=== PATIENT | female | born 1965 | race Caucasian/White ===

== ENCOUNTER 2022-01-03 09:06 | Emergency (ER) | payer MEDICARE, SELFPAY ==
--- NOTE | ~2022-01-03 | CT_ITS ---
EXAMINATION: CT abdomen pelvis w con DATE: 01/03/2022 11:42 INDICATION: Left lower quadrant abdominal pain. Nausea and vomiting. TECHNIQUE: Computed tomography (CT) of the abdomen and pelvis was performed with 100 CC Omnipaque 350 intravenous contrast. Automated exposure control and iterative reconstruction technique were employe d. Exam dose: 1015.58 mGy-cm total exam DLP. COMPARISON: 09/28/2005 2 view chest FINDINGS: There is a 1.3 cm soft tissue mass in the lateral aspect of the left lower lobe. No such de nsity is noted on 09/28/2005 chest radiographic examination. Lung cancer must be considered. PET/CT chu ging may be helpful for further evaluation. The lesion would be amenable to percutaneous CT-guided ne edle biopsy. The lung bases are clear of infiltrate or consolidation. Normal heart size. No pericardial or pleural effusion. Status post cholecystectomy. This likely accounts for mild bile duct dilatation. No hepatic, splenic, pancreatic, adrenal or suspicious renal space-occupying mass lesion is detected. Occasional small re nal cyst is noted. No urinary tract calculus or hydroureteronephrosis. The urinary bladder is relativ kam evacuated, unremarkable. Uterus and adnexal areas are unremarkable. Normal caliber of the abdominal aorta. No intraperitoneal or retroperitoneal or pelvic mass lesion or adenopathy or ascites. No evidence of appendicitis. No bowel obstruction or intraperitoneal free air. Degenerative spurring of the lower thoracic spine. Multilevel degenerative disc disease of lumbar spi ne, particularly severe at L2-3 and L3-4. Prominent degenerative change at the lumbar apophyseal join ts with associated grade 1 anterolisthesis at L4-5. No suspicious osteolytic or osteoblastic lesions. IMPRESSION: 1.3 cm left lower lobe lung mass, of concern for lung cancer. Further evaluation is recom mended. Status post cholecystectomy Occasional small renal cysts Reviewed, dictated and finalized at [facility]. Reviewed, dictated and finalized at [facility]. IMPRESSION: 1.3 cm left lower lobe lung mass, of concern for lung cancer. Furth er evaluation is recommended. Status post cholecystectomy Occasional small renal cysts
[2022-01-03 09:21] VITALS: BP 117/76; PULSE 70; RESP 18; TEMP 36.4; O2SAT 100
[2022-01-03 09:58] LABS: Basophils Percent Auto 0.9 % (0.2-1.2); Eosinophils Absolute Auto 0.1 K/mm3 (0-0.3); Hematocrit 39.5 % (37.0-47.0); Hemoglobin 13.3 g/dL (12.0-15.0); Immature Granulocyte Absolute 0.01 K/mm3 (0.00-0.031); Immature Granulocyte Percent A 0.2 % (0-0.5); Lymphocytes Absolute Auto 1.39 K/mm3 (0.9-3.2); Lymphocytes Percent Auto 31.9 % (18.3-44.2); Mean Corpuscular HGB Conc 33.7 g/dl (32-36); Mean Corpuscular Hemoglobin 30.9 pg (26-34); Mean Corpuscular Volume 91.9 fl (80-100); Monocytes Absolute Auto 0.4 K/mm3 (0.1-0.6); Monocytes Percent Auto 8.5 % (2.6-8.5); Neutrophils Absolute Auto 2.4 K/mm3 (1.3-6.7); Neutrophils Percent Auto 55.5 % (45.5-73.1); Platelet Count Result 231 k/mm3 (150-375); Red Cell Distribution Width 12.4 % (11.5-14.5); White Blood Count 4.4 K/mm3 (4.5-10.0)
[2022-01-03 10:11] LABS: Alanine Aminotransferase 20 U/L (6-35); Albumin Level 4.4 g/dL (3.5-5.1); Alkaline Phosphatase 59 U/L (38-126); Anion Gap 8 mmol/L (8-16); Aspartate Amino Transferase 28 U/L (14-36); Bilirubin,Total 0.6 mg/dL (0.2-1.3); Blood Urea Nitrogen 16 mg/dL (7-17); Calcium 8.8 mg/dL (8.4-10.2); Carbon Dioxide 27 mmol/L (22-30); Chloride 104 mmol/L (98-107); Estimated CRCL calculation 79 ml/min; Estimated Glomerular Filt Rate > 60; Glucose 104 mg/dL (65-110); Lipase 54 U/L (23-300); Sodium 139 mmol/L (137-145)
[2022-01-03 10:51] VITALS: BP 124/66; O2SAT 99
[2022-01-03] MEDS: MORPHINE SULFATE (*CRX) 4 MG/ML INJ IV PUSH ×2 (10:59→13:41)
[2022-01-03] MEDS: ONDANSETRON INJ 4 MG/2 ML VIAL IV PUSH (10:59)
[2022-01-03] MEDS: LACTATED RINGERS 1,000 ML 999 ML IV CONT (11:00)
[2022-01-03 11:13] LABS: Appearance Urine Clear (Clear); Bilirubin Urine Negative (Negative); Color Urine Yellow (Yellow); Glucose Urine UA Negative (Negative); Ketones Urine Negative (Negative); Leukocyte Esterase Ur Negative LEU/UL (Negative); Nitrate Urine Negative (Negative); Protein Urine Negative (Negative); Specific Grav Ur 1.025 (1.001-1.035); Urobilinogen Urine 0.2 mg/dL (<2.0); pH Urine 7.5 (5.0-9.0)
[2022-01-03 11:38] LABS: Mucus Urine Rare /lpf; Squamous Epithelial Cell Urine Rare /hpf (Few); WBC Urine 0-3 /hpf
[2022-01-03 11:42] LABS: Add Urine Microscopic? YES; Blood Urine Trace-Intact (Negative)
[2022-01-03 11:51] LABS: SARS-CoV-2 RNA PCR Negative
[2022-01-03 12:23] VITALS: BP 117/72; PULSE 78; RESP 18; O2SAT 99
--- NOTE | 2022-01-03 14:53 | ED.ABDPAIN ---
HPI - Abdominal Pain General Chief Complaint: Abdominal Pain Stated Complaint: abdominal pain, vomiting Time Seen by Provider: 01/03/22 10:19 History of Present Illness HPI narrative: 56-year-old female presenting with nausea, vomiting, left lower quadrant pain x2d, worse with walking. No dysuria. NO f/c, never had similar sx in the past. Related Data Allergies Allergy/AdvReac Type Severity Reaction Status Date / Time codeine Allergy Unknown Verified 01/21/11 12:02 Review of Systems Review of Systems: CONST: No fever. HEENT: No sore throat C/V: No chest pain RESP: No cough GI: Reports abdominal pain, nausea : No dysuria. M/S: No joint pain. SKIN: No rash. NEURO: [No headache or focal numbness or weakness] PSYCH: [No depression] [facility] Family History Family History Other Cerebrovascular accident Diabetes mellitus Family history of arthritis Hypertension Social History Social History Smoking status: Former smoker Alcohol intake: never Exam Narrative: EXAMINATION OF ORGAN SYSTEMS/BODY AREAS: Constitutional: Vital signs per nursing GENERAL:[No acute distress, non-toxic appearing.] HEAD: Normal with no signs of head trauma. EYES: EOMI, conjunctiva normal ENT: Hearing grossly intact LUNGS: Nonlabored breathing. HEART: [Regular rate and rhythm] ABD: [Soft], [mild tenderness left lower quadrant to palpation], no CVA tenderness EXT: Normal range of motion SKIN: [No rashes or lesions.] NEURO: [Alert and oriented x 3. No gross focal sensory or strength deficits.] PSYCH: Normal affect Course Vital Signs Vital signs: Vital Signs Temperature 97.6 F 01/03/22 09:21 Pulse Rate 70 01/03/22 09:21 Respiratory Rate 18 01/03/22 09:21 Blood Pressure 117/76 01/03/22 09:21 Pulse Oximetry 100 01/03/22 09:21 Oxygen Delivery Room Air 01/03/22 09:21 Temperature 97.6 F 01/03/22 09:21 Pulse Rate 62 01/03/22 15:27 Respiratory Rate 20 01/03/22 15:27 Blood Pressure 133/58 L 01/03/22 15:27 Pulse Oximetry 99 01/03/22 15:27 Oxygen Delivery Room Air 01/03/22 09:21 MDM - Abdominal Pain MDM Narrative Medical decision making narrative: Electronic medical record was reviewed. Patient presented to the ED with complaint of [abdominal pain and vomiting]. Vitals [were within acceptable limits]. Physical exam revealed [tenderness to palpation in left lower quadrant abdomen]. Based on the patient's history and physical exam, my differential includes but is not limited to [diverticulitis, UTI, kidney stone, gastroenteritis appendicitis]. [IV access was established by nursing staff. Patient was given zofran, morphine]. CBC, BMP, lipase, LFTs, bilirubin and alk phos were obtained. Labs were pertinent for blood in UA. [Decision was made to obtain a CT-abdomen to evaluate for acute abdominal process. CT-abdomen is unremarkable for acute intra-abdominal process, no signs of hydronephrosis, appendicitis.] There is a pulmonary nodule which I have discussed with the patient and her at bedside regarding need to follow-up on this for possible cancer. On reevaluation, the patient states that they are feeling much better. There were no witnessed episodes of vomiting in the emergency department. They are not complaining of any new abdominal pain. Repeat examination did not show any significant guarding or rebound. No new tenderness. I did offer the patient admission for pain control however she would like to go home at this time. The patient was given strict return precautions, if they are to develop any worsening abdominal pain, vomiting, or blood in the vomit they are to return to the emergency department immediately. Patient verbally acknowledges understanding these directions. [The patient was informed of the above diagnostic test findings.] They will be discharged home [with prescriptions]. They were ad
[2022-01-03 15:27] VITALS: BP 133/58; PULSE 62; RESP 20; O2SAT 99
== END 2022-01-03 15:28 | disposition home or self-care (01) ==
PROVIDERS: Physician Assistant; Emergency Provider Emergency Medicine
DX: R10.32 Left lower quadrant pain (principal); Z20.822 Contact with and (suspected) exposure to COVID-19; Z87.891 Personal history of nicotine dependence
CPT/HCPCS: 36415; 74177; 80053; 81001; 83690; 85025; 96361; 96374; 96375; 96376; 99284; C9803; J2270; J2405; J7120; Q9967; U0003; U0005

== ENCOUNTER 2022-08-31 10:02 | Day surgery (SDC) | payer MEDICARE, SELFPAY ==
[2022-08-06 12:00] VITALS: BMI 31.3
[2022-08-19 10:08] VITALS: BMI 31.1
--- NOTE | 2022-08-31 10:43 | WPDANESEPPF ---
Anes - Initial Pre Proc Eval Procedure: Operation Date: 08/31/22 12:30 Proposed Procedures p Diagnostic Colonoscopy - Eliazar Jones MD Date/Time: 08/31/22 10:43 Surgeon: Eliazar Jones MD Pre Op Diagnosis: Unspecified Abd.Pain, Other Fecal Abnormalities Patient Data Age: 57 Gender: F Height: 1.7 m Weight: 90 kg Allergies Allergy/AdvReac Type Severity Reaction Status Date / Time codeine Allergy Unknown Vomiting Verified 08/31/22 11:27 Home Medications Medication Instructions Recorded Confirmed Type bupropion HCl 150 mg 24 hr tablet, 150 mg PO TID 01/14/22 08/31/22 History extended release (Wellbutrin XL) multivitamin 1 tablet PO DAILY 01/14/22 08/31/22 History sertraline 100 mg tablet (Zoloft) 100 mg PO TID 01/14/22 08/31/22 History sodium,potassium,mag sulfates 17.5 See Rx Instructions PO .COMPLEX 08/06/22 08/31/22 Rx gram-3.13 gram-1.6 gram oral soln #354 mL (Suprep Bowel Prep Kit) Patient hx anesthesia problems: none Family hx anesthesia problems: none Results Review: All pre-operative results and documents have been reviewed as part of the pre-operative evaluation. [facility] Past Medical History Medical History (Updated 08/31/22 @ 12:10 by Eliazar Jones MD) Allergies Anxiety Obesity Family History Family History Mother Depression Lymphoma Father Cancer Diabetes mellitus Depression Heart disease MDS (myelodysplastic syndrome) Grandparent Diabetes mellitus Hypertension Depression Heart disease Cerebrovascular accident Colorectal cancer Skin cancer Sibling Depression Other Family history of arthritis Social History Social History (Updated 08/05/22 @ 13:48 by Suzy Rodríguez [facility]) Smoking status: Former smoker Tobacco type: e-cigarettes/vaping Alcohol intake: never Substance use: never Substance use type: does not use Lack of Transportation: No Lack of Food: Never True Current Housing: I Have Housing Concerned About Future Housing: No Difficulty Paying Gas/Electric Bills: No Difficulty Paying for Meds: No Currently Unemployed: No Education: Associate Degree Difficulty w/ Childcare or Family Care: No Living arrangements: with family Spiritual care concerns: No Anes - Eval Final PreProcedure Day of Procedure 08/31/22 10:43 Patient weight: obese Heart: regular rate and rhythm Lungs: clear to auscultation and normal air movement Airway: Mallampati scale class II Neurological: alert and oriented Last oral intake: >/= 8 hours ASA classification: II Emergent: no Anesthetic plan: proceed Anesthesia type and monitoring: general GIVS Results Review: All pre-operative results and documents have been reviewed as part of the pre-operative evaluation. Informed Consent: The patient's anesthetic plan and its attendant risks and benefits were discussed with the patient/family/POA. Questions were solicited and answers provided to the satisfaction of the patient/family/POA.
[2022-08-31 11:25] VITALS: BP 112/84; PULSE 77; RESP 20; TEMP 37.2; O2SAT 100
[2022-08-31] MEDS: LACTATED RINGERS 1,000 ML 150 ML IV CONT (11:47)
--- NOTE | 2022-08-31 12:07 | PM.HPGS ---
History of Present Illness History of Present Illness Consent: Risks, benefits, and alternatives have been discussed and questions answered. Patient agrees to proceed with procedure. Chief complaint: Unspecified Abd.Pain, Other Fecal Abnormalities Narrative: Ivette Moralez is a 57 year old female Presents for colonoscopy. Patient reports for many years has had a vague right lower quadrant pain. She describes as a sharp crampy pain deep in the right pelvis. Patient apparently had a viral gastroenteritis recently. Prior to this she was constipated. Now hour bowel habits are more regular. Patient denies a fever. She has had no bleeding. Family history is noncontributory. It has been more than 10 years since previous screening colonoscopy in screening colonoscopy is now advised. Patient presents today for colonoscopy. Patient has distant past medical history is significant for gastric bypass surgery. Patient also scheduled for gynecological examination of this abdominal pain. Review of Systems Review of Systems: Review of systems noncontributory. [facility] Past Medical History Medical History (Updated 08/31/22 @ 12:10 by Eliazar Jones MD) Allergies Anxiety Obesity Family History Family History Mother Depression Lymphoma Father Cancer Diabetes mellitus Depression Heart disease MDS (myelodysplastic syndrome) Grandparent Diabetes mellitus Hypertension Depression Heart disease Cerebrovascular accident Colorectal cancer Skin cancer Sibling Depression Other Family history of arthritis Social History Social History (Updated 08/05/22 @ 13:48 by Suzy Rodríguez [facility]) Smoking status: Former smoker Tobacco type: e-cigarettes/vaping Alcohol intake: never Substance use: never Substance use type: does not use Lack of Transportation: No Lack of Food: Never True Current Housing: I Have Housing Concerned About Future Housing: No Difficulty Paying Gas/Electric Bills: No Difficulty Paying for Meds: No Currently Unemployed: No Education: Associate Degree Difficulty w/ Childcare or Family Care: No Living arrangements: with family Spiritual care concerns: No Meds Home Medications and Allergies Home Medications Medication Instructions Recorded Confirmed Type bupropion HCl 150 mg 24 hr tablet, 150 mg PO TID 01/14/22 08/31/22 History extended release (Wellbutrin XL) multivitamin 1 tablet PO DAILY 01/14/22 08/31/22 History sertraline 100 mg tablet (Zoloft) 100 mg PO TID 01/14/22 08/31/22 History sodium,potassium,mag sulfates 17.5 See Rx Instructions PO .COMPLEX 08/06/22 08/31/22 Rx gram-3.13 gram-1.6 gram oral soln #354 mL (Suprep Bowel Prep Kit) Allergies Allergy/AdvReac Type Severity Reaction Status Date / Time codeine Allergy Unknown Vomiting Verified 08/31/22 11:27 Vital Signs Vital Signs - 24 hr 08/31/22 11:25 Temperature 99.0 F Pulse Rate 77 Respiratory Rate 20 Blood Pressure 112/84 Pulse Oximetry 100 Oxygen Delivery Room Air Exam Narrative: Physical exam reveals patient to be alert. Vital signs stable. HEENT exam is unremarkable. Patient is anicteric. Lungs are clear to auscultation and percussion. Heart is without murmur or extra sounds. Abdomen bowel sounds are present soft nontender with no organomegaly. Digital rectal exam normal. Assessment and Plan Assessment and plan (1) Abdominal pain: Code(s): R10.9 - Unspecified abdominal pain Status: Acute Assessment and Plan: Patient has rather vague right lower quadrant abdominal pain that has been present for many years. Described as sharp and crampy. Plan is for colonoscopy to evaluate this also for screening purposes. (2) Encounter for screening colonoscopy: Code(s): Z12.11 - Encounter for screening for malignant neoplasm of colon Status: Acute Assessment and Samuel
[2022-08-31 13:14] VITALS: BP 108/65; PULSE 70; RESP 14; O2SAT 98
[2022-08-31 13:24] VITALS: BP 95/72; PULSE 60; RESP 18; O2SAT 100
[2022-08-31 13:34] VITALS: BP 109/69; PULSE 70; RESP 18; O2SAT 100
--- NOTE | 2022-08-31 15:00 | WPDANESPN ---
Anes - Prog Note Post-Op Date/Time: 08/31/22 15:00 Cardiovascular status: normal Respiratory status: normal Airway patency: baseline Mental status: baseline Post-Op hydration status: normal Vital Signs: Last Vital Signs Temp 37.2 C 08/31/22 11:25 Pulse 70 08/31/22 13:34 Resp 18 08/31/22 13:34 BP 109/69 08/31/22 13:34 Pulse Ox 100 08/31/22 13:34 O2 Del Method Room Air 08/31/22 13:34 Pain Score (VAS): 0 I/O: Intake & Output 08/30/22 08/31/22 08/31/22 23:59 07:59 15:59 Intake Total 550 Balance 550 Post-procedural complaints: none Patient Feedback: Patient satisfied with anesthetic care.
== END 2022-08-31 13:58 | disposition home or self-care (01) ==
PROVIDERS: PCP Family Medicine; Visit Provider Internal Medicine Gastroenterology
PROC: 0DJD8ZZ Inspection of Lower Intestinal Tract, Via Natural or Artificial Opening Endoscopic (ICD-10-PCS; CPT 45378; principal; 2022-08-31 12:30)
DX: Z12.11 Encounter for screening for malignant neoplasm of colon (principal)
CPT/HCPCS: 45378

== ENCOUNTER 2022-10-29 08:36 | Outpatient (CLI) | payer MEDICARE, SELFPAY ==
--- NOTE | 2022-11-20 10:40 | WPDSLEEPSTUD ---
Sleep Study Date of Study: 10/29/22 Ordering Provider: Angie Roberts DO Interpreting Physician: Scarlett Chapa MD Sleep Study Type: Split Polysomnogram Height: 1.73 m Weight: 92.986 kg Body Mass Index: 31.1 Neck Circumference (inches): 14 Candor: 12 Reason for Sleep Study Unrefreshing sleep, daytime hypersomnia, and loud snoring Sleep History Patient is a 57-year-old female with history of allergies and anxiety who presented for a split night sleep study for evaluation of daytime hypersomnia, unrefreshing sleep, and loud snoring. She never awakens from sleep short of breath. She occasionally awakens at night with heartburn, belching or cough. She frequently snores and snores loudly enough that others complain. She occasionally has trouble sleeping when she has a cold. She occasionally suddenly wakes up gasping for breath during the night. She never has breathing problems at night. She occasionally sweats excessively at night. She rarely notices her heart pounding or beating irregularly during the night. She occasionally falls asleep during the day. She rarely falls asleep involuntarily and never falls asleep while driving. She never experiences loss of muscle tone with strong emotion. She never feels paralyzed on waking or falling asleep. She rarely experiences vivid dreams upon waking or falling asleep. She occasionally feels afraid of going to sleep. She occasionally has nightmares. She occasionally recalls her dreams. She frequently has thoughts racing through her mind. She frequently feels sad or depressed. She frequently feels anxiety or worry about things. She constantly notices parts of her body jerk. She occasionally kicks during the night. She never feels crawling or aching feelings in her legs and does not feel leg pain at night. She frequently grinds her teeth during sleep and frequently wakes up with morning jaw pain. She frequently feels bothered by pain during the day and is occasionally awakened by pain during the night. She frequently wakes up feeling stiff in the morning. She occasionally wakes up feeling sore and achy in the morning and frequently wakes pain in her neck, spine, or joints. Normal bedtime is around 9pm on the weekdays and 9 or 10pm on the weekends, taking 1 hour to fall asleep. She typically gets about 7 hours of sleep per night. Her wake up time is between 5:30am to 7am on the weekdays and same on the weekends. She typically wakes up around twice per night, awake 5 to 10 minutes or more and she will go to the bathroom and take a drink. Habits: Former tobacco smoker. Drinks about 5 caffeinated beverages per day. No alcohol or recreational substances. [facility] Past Medical History Medical History Allergies Anxiety Obesity Family History Family History Mother Depression Lymphoma Father Cancer Diabetes mellitus Depression Heart disease MDS (myelodysplastic syndrome) Grandparent Diabetes mellitus Hypertension Depression Heart disease Cerebrovascular accident Colorectal cancer Skin cancer Sibling Depression Other Family history of arthritis Social History Social History Smoking status: Former smoker Tobacco type: e-cigarettes/vaping Alcohol intake: never Substance use: never Substance use type: does not use Lack of Transportation: No Lack of Food: Never True Current Housing: I Have Housing Concerned About Future Housing: No Difficulty Paying Gas/Electric Bills: No Difficulty Paying for Meds: No Currently Unemployed: No Education: Associate Degree Difficulty w/ Childcare or Family Care: No Living arrangements: with family Spiritual care concerns: No Medications Home Medications Medication Instructions Recorded Confirmed Type bupropion HCl 150 mg 24 hr tablet, 150 mg PO
[2022-11-20 10:53] VITALS: BMI 31.1
== END 2022-10-30 08:11 | disposition home or self-care (01) ==
LOC: ANHCSM 08:37
PROVIDERS: PCP Family Medicine; Visit Provider Family Medicine
DX: G47.10 Hypersomnia, unspecified (principal); G47.33 Obstructive sleep apnea (adult) (pediatric)
CPT/HCPCS: 95811

== ENCOUNTER 2022-11-12 10:27 | Outpatient (CLI) | payer MEDICARE, SELFPAY ==
--- NOTE | ~2022-11-12 | XR_ITS ---
. XR shoulder RT min 2V 11/12/2022 10:40 Indication: Right shoulder pain. No acute injury. Procedure: 4 views right shoulder Comparison: Comparison to multiple prior studies sequentially, with oldest reviewed study dated 10/09. Findings: There is mild-moderate polyarticular osteoarthritis of the right shoulder. No fracture, sub luxation or dislocation. No significant soft tissue abnormality. No foreign bodies. Impression: 1: Mild-moderate polyarticular osteoarthritis of the right shoulder. Reviewed, dictated and finalized at [facility]. Impression: 1: Mild-moderate polyarticular osteoarthritis of the right shoulder.
--- NOTE | ~2022-11-12 | XR_ITS ---
XR shoulder LT min 2V 11/12/2022 10:40 Indication: Left shoulder pain Procedure: 4 views left shoulder Comparison: 10/21/2012 Findings: There is mild osteoarthritis of the glenohumeral joint. No fracture or traumatic malalignme nt. No significant soft tissue abnormality. No foreign bodies. Impression: 1: Mild left glenohumeral joint osteoarthritis. Reviewed, dictated and finalized at [facility]. Impression: 1: Mild left glenohumeral joint osteoarthritis.
== END 2022-11-12 10:28 ==
PROVIDERS: PCP Family Medicine; Visit Provider Family Medicine
DX: M19.012 Primary osteoarthritis, left shoulder (principal); M19.011 Primary osteoarthritis, right shoulder
CPT/HCPCS: 73030

== ENCOUNTER 2023-07-08 10:18 | Outpatient (CLI) | payer MEDICARE, SELFPAY ==
--- NOTE | ~2023-07-08 | US_ITS ---
EXAMINATION: US soft tissue groin RT DATE: 07/08/2023 10:36 INDICATION: Right groin pain. TECHNIQUE: Multiple grayscale and Doppler ultrasound images of the right groin were obtained. COMPARISON: CT abdomen and pelvis 01/03/2022 FINDINGS: There is no abnormal mass, lymphadenopathy, or hernia in the patient's area of concern in r ight groin. IMPRESSION: 1. No abnormality in right groin. Reviewed, dictated and finalized at location [facility]. FING DIRECTOR
== END 2023-07-08 10:19 ==
LOC: GOSHIMG 10:19
PROVIDERS: PCP Family Medicine; Visit Provider Family Medicine
DX: R22.2 Localized swelling, mass and lump, trunk (principal)
CPT/HCPCS: 76882

== ENCOUNTER 2023-07-20 08:18 | Outpatient (CLI) | payer MEDICARE, SELFPAY ==
--- NOTE | ~2023-07-20 | CT_ITS ---
CT of the Abdomen and Pelvis: Indication: Right inguinal hernia Technique: 2.5 mm axial scans were obtained through the abdomen and pelvis following intravenous adm inistration of 100 cc of Omnipaque 350. Dose reduction technique was used on this scan by utilizing a utomated exposure control and iterative reconstruction technique. The dose-length product (DLP) was 1 140.21 mGy-cm. COMPARISON: 01/03/2022 Findings: Scans through the lung bases demonstrates stable 1.6 cm left basilar pulmonary nodule. The liver, spleen, pancreas, adrenals and kidneys are within normal limits. Cholecystectomy clips are present. There are atherosclerotic calcifications of the aorta. No lymphadenopathy. No bowel obstruction or bowel wall thickening. There is no evidence to suggest acute appendicitis. Images through the pelvis were performed. Urinary bladder unremarkable. No pelvic mass seen. No ascit es. Degenerative spondylosis of lumbar spine noted. Impression: No hernia identified. Stable 1.6 cm left basilar pulmonary nodule. Reviewed, dictated and finalized at [facility]. [employer] Impression: No hernia identified. Stable 1.6 cm left basilar pulmonary nodule.
== END 2023-07-20 08:19 ==
LOC: GOSHIMG 08:19
PROVIDERS: PCP Family Medicine; Visit Provider Family Medicine
DX: R10.31 Right lower quadrant pain (principal)
CPT/HCPCS: 74177; Q9967

== ENCOUNTER 2024-03-20 11:07 | Emergency (ER) | payer MEDICARE, SELFPAY ==
--- NOTE | ~2024-03-20 | XR_ITS ---
Clinical Indication: Cough PA and lateral views of the chest: Comparison: 09/28/2005 Findings: 2 cm nodule present the left lung base laterally. Right lung clear. Cardiomediastinal silho uette is within normal limits. Bones and soft tissues are unremarkable. Impression: 2 cm lateral left lung base nodule. This correlates with the nodule seen in this location on prior ab dominal pelvic CT dated 07/20/2023. Reviewed, dictated and finalized at location M. Impression: 2 cm lateral left lung base nodule. This correlates with the nodule seen in thi s location on prior abdominal pelvic CT dated 07/20/2023.
[2024-03-20 11:17] VITALS: BP 109/68; PULSE 72; RESP 16; TEMP 36.4; O2SAT 99
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
== END 2024-03-20 12:30 | disposition home or self-care (01) ==
PROVIDERS: Emergency Provider Nurse Practitioner Family; PCP Family Medicine
DX: J40 Bronchitis, not specified as acute or chronic (principal); F41.9 Anxiety disorder, unspecified; E66.9 Obesity, unspecified; Z68.31 Body mass index [BMI] 31.0-31.9, adult; Z87.891 Personal history of nicotine dependence
CPT/HCPCS: 71046; 99213; G0463

== ENCOUNTER 2024-06-20 12:27 | Emergency (ER) | payer MEDICARE, SELFPAY ==
[2024-06-20 12:38] VITALS: BP 112/61; PULSE 83; RESP 18; TEMP 36.1; O2SAT 100
--- NOTE | 2024-06-20 12:38 | ED.URI ---
HPI - URI/Sore Throat General Chief Complaint: Upper Respiratory Infection Stated Complaint: headache,sorethroat,chest congestion Time Seen by Provider: 06/20/24 12:38 Source: patient Mode of arrival: ambulatory Limitations: no limitations History of Present Illness HPI Narrative: Ivette is a 59-year-old female patient presenting to the clinic today with complaints of sore throat, headache, chest congestion, and nonproductive cough x3 days. Denies any shortness of breath or chest pain. Has been exposed to RSV. MD elicited complaint: sore throat and nasal congestion Related Data Home Medications ?Medication ?Instructions ?Recorded ?Confirmed ?Last Taken ?Type multivitamin 1 tablet PO DAILY 01/14/22 04/13/24 Unknown History bupropion HCl 150 mg 24 hr tablet, 150 mg PO DAILY 01/20/23 04/13/24 Unknown History extended release (Wellbutrin XL) albuterol sulfate 90 mcg/actuation 2 puff inhalation Q4H PRN 04/13/24 04/13/24 Unknown History aerosol inhaler shortness of breath or wheezing ascorbate calcium (vitamin C) 500 500 mg PO DAILY 04/13/24 04/13/24 Unknown History mg tablet Allergies Allergy/AdvReac Type Severity Reaction Status Date / Time codeine AdvReac Unknown Vomiting Verified 06/20/24 12:44 Review of Systems Review of Systems: Pertinent positives per HPI. Patient denies any fever, chills, rash, headache, visual changes, dizziness, shortness of breath, chest pain, palpitations, nausea, vomiting, diarrhea, constipation, abdominal pain, or any urinary issues. PMFSH Past Medical History Medical History Obesity Anxiety Allergies Family History Family History Mother Depression Lymphoma Father Cancer Diabetes mellitus Depression Heart disease MDS (myelodysplastic syndrome) Grandparent Diabetes mellitus Hypertension Depression Heart disease Cerebrovascular accident Colorectal cancer Skin cancer Sibling Depression Other Family history of arthritis Social History Social History Social History: Caffeine-daily Smoking status: Former smoker Tobacco type: e-cigarettes/vaping Alcohol intake: never Substance use: never Substance use type: does not use Do You Feel Safe in your Home?: Yes Lack of Transportation: No Lack of Food: Never True Current Housing: I Have Housing Concerned About Future Housing: No Difficulty Paying Gas/Electric Bills: No Difficulty Paying for Meds: No Currently Unemployed: No Education: Associate Degree Difficulty w/ Childcare or Family Care: No Living arrangements: with family Spiritual care concerns: No Comments At the time of my signature, I reviewed and agree with the nursing past medical, surgical, social, and family history. There is no relevant family history pertinent to the patient complaint. Exam Narrative: General: Well-developed, well nourished, in no apparent distress Head: Normocephalic, atraumatic Eyes: Pupils equally round and reactive to light bilaterally, EOM intact, sclera and conjunctive clear, no discharge, lids normal Ears: TMs intact and clear, ear canals clear, no drainage, grossly hearing normal. Nose: Nares patent, clear nasal discharge, no inflammation, no sinus tenderness. Mouth: Oral pharynx mildly red without lesions or masses, good dentition, MMM. Postnasal drip Neck: Supple, trachea midline, no enlargement of anterior or posterior cervical nodes, no thyroid masses or goiter palpable. Cardio: Regular rate and rhythm, s1 and s2 normal, no murmur appreciated. Resp: Clear to auscultation bilaterally, no rhonchi, rales, wheezing or rubs Course Course Emergency Course: Portions of this record may have been created with voice recognition software. Level of Care: Express Care Visit Vital Signs Vital signs: Vital Signs Temperature 36.1 C L 06/20/24 12:38 Pulse Rate 83 06/20/24 12:38 Respiratory Rate 18 06/20/24 12:38 Blood Pressure 112/61 06/20/24 12:38 Pulse Oximetry 100 06/20/24 12:38 Oxygen Delivery Room Air 06/20/24 12:38 Temperature 36.1 C L 06/20/24 12:38 Pulse Rate 83 06/20/24 12:38 Respiratory Rate 18 06/20/24 12:38 Blood Pressure 112/61 06/20/24 12:38 Pulse Oximetry 100 06/20/24 12:38 Oxygen Delivery Room Air 06/20/24 12:38 Vital signs reviewed MDM - URI/Sore Throat MDM Narrative Medical decision making narrative: At the time of visit patient is resting comfortably on the exam table. Patient appears to be nontoxic. Labs: COVID, influenza, and strep test were performed. Strep test was negative and we will send for culture. COVID and influenza testing was negative. Plan: I suspect patient has URI/pharyngitis. Has had exposure to RSV. Supportive measures were discussed with the patient and they voiced understanding discharge instructions and agrees to treatment plan. Return precautions reviewed Differential Diagnosis Differential diagnosis: Likely upper respiratory infection, otitis media, sinusitis, viral infection, bronchitis, influenza, pharyngitis and other (COVID) Lab Data Labs: Lab Results 06/20/24 Range/Units 12:57 POC Grp A Strep Screen Negative (Negative) Discharge Plan Discharge Clinical Impression: RSV exposure Upper respiratory infection Qualifiers: URI type: unspecified URI Qualified Code(s): J06.9 - Acute upper respiratory infection, unspecified Pharyngitis Qualifiers: Pharyngitis/tonsillitis etiology: unspecified etiology Qualified Code(s): J02.9 - Acute pharyngitis, unspecified Patient Disposition: Home, Self-Care Condition: Stable Instructions: Antibiotic Form, Pharyngitis (ED), Cold Symptoms (ED), RSV (Respiratory Syncytial Virus) Infection (ED) Additional Instructions: COVID, influenza, and strep test were all negative in the clinic today. We will send strep for culture if this comes back positive we will contact you in place you on antibiotics at that time. May take DayQuil/NyQuil for cold/flu symptoms If you have need to be around people white your ill please wear a mask and practice good handwashing technique Increase fluids and stay well hydrated Tylenol/motrin for pain/fever Flonase and OTC antihistamines as directed Vicks vapor rub to open sinuses Sinus rinses for congestion Cepacol spray, cough drops, throat lozenges, warm tea with honey/lemon, gargle salt water to soothe throat BRAT diet for diarrhea Clear liquids x 24 hours then advance as tolerated for nausea/vomiting Go to the ED if you develop a worsening in your condition- high fever not controlled by Tylenol or Motrin, dehydration, weakness, lethargy, shortness of breath, or chest pain. Follow up with your PCP in 3-5 days if symptoms persist. Patient Language: Persian Prescriptions: No Action albuterol sulfate 90 mcg/actuation HFA aerosol inhaler 2 puff inhalation Q4H PRN (Reason: shortness of breath or wheezing) sertraline 100 mg tablet 200 mg PO QHS Qty: 180 1RF multivitamin Tablet 1 tablet PO DAILY bupropion HCl [Wellbutrin XL] 150 mg tablet extended release 24 hr 150 mg PO DAILY ascorbate calcium (vitamin C) 500 mg tablet 500 mg PO DAILY (DME) Aerochamber MV Spacer See Rx Instructions .Route Qty: 1 0RF Rx Instructions: Use with inhaler celecoxib [Celebrex] 200 mg capsule 200 mg PO DAILY Qty: 90 1RF Rx Instructions: Take with food Follow-up/Referrals: Angie Roberts DO [Primary Care Provider] - Time of Disposition: 13:03 Quality NIHSS Nursing Documentation ED NIHSS nursing documentation: reviewed/agree
[2024-06-20 12:59] LABS: EDSTREPNEGPOS1 Negative (Negative)
[2024-06-20 13:04] LABS: EDCOVIDSCREEN Negative (Negative); EDINFLUASCREEN Negative (Negative); EDINFLUBSCREEN Negative (Negative)
--- OUTSIDE RECORDS SUMMARY | 2024-06-22 18:14 | XMS_ITS | Clinical Summary ---
Author Organization [facility] Address [address] [place] [id number] Care Team Providers Care Distributor Advertising Material Name Role Phone No, Physician Primary Care Provider [phone] Allergies Active Allergy Reactions Criticality Noted Date Comments Codeine Medications buPROPion XL (WELLBUTRIN XL) 300 mg 24 hr tablet daily 01/24/2015 Active multivitamin tablet daily Active sertraline (ZOLOFT) 100 mg tablet daily 01/24/2015 Active Active Problems Problem Noted Date Diagnosed Date Purulent postnasal drainage 08/27/2023 Nodule of lower lobe of left lung 07/17/2022 Trigger ring finger of right hand 07/17/2022 Hypoglycemia 07/17/2022 Fatigue 01/06/2022 Lung mass 01/05/2022 Vomiting 12/09/2015 Obesity with body mass index 30 or greater 11/07 History of bariatric surgery 09/30/2015 Gastroesophageal reflux disease with esophagitis 07/29/2015 Pure hypercholesterolemia 07/29/2015 Anaclitic depression 07/29/2015 Morbid obesity 01/22/2015 Family History Medical History Relation Name Comments Depression Father Family history of depression - (Added by TW Conv) Diabetes Father Family history of diabetes mellitus - (Added by TW Conv) Obesity Father Family history of obesity - (Added by TW Conv) Cancer Mother Family history of malignant neoplasm - (Added by TW Conv) Depression Mother Family history of depression - (Added by TW Conv) Cancer Other Family history of malignant neoplasm - Relation: Grandparent (Added by TW Conv) Heart disease Other Family history of cardiac disorder - Relation: Grandparent (Added by TW Conv) Hypertension Other Family history of hypertension - Relation: Grandparent (Added by TW Conv) Obesity Other Family history of obesity - Relation: Grandparent (Added by TW Conv) Stroke Other Family history of cerebrovascular accident - Relation: Grandparent (Added by TW Conv) Relation Name Status Comments Father Mother Other Social History Tobacco Use Types Packs/Day Years Used Date Smoking Tobacco: Former Smokeless Tobacco: Former Quit: 2009 Tobacco Cessation:Counseling Given: Not Answered Comments:Quit in 2009 Personal Safety Answer Date Recorded Getting School Help Needed Not on file 06/22 Comments Unknown Sex and Gender Information Value Date Recorded Sex Assigned at Not on file 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 Gender Identity Female 01/07/2022 11:02 AM CDT Sexual Orientation Lesbian 01/07/2022 11 :02 AM CDT Obstetrics History Last Filed Vital Signs Vital Sign Reading Time Taken Comments Blood Pressure 100/64 08/27/2023 8:57 AM CDT Pulse 71 08/27/2023 8:57 AM CDT Temperature 36.4 ??C (97.5 ??F) 08/27/2023 8:57 AM CD T Respiratory Rate 16 08/27/2023 8:57 AM CDT Oxygen Saturation 97% 08/27/2023 8:57 AM CDT Inhaled Oxygen Concentration - - Weight 94.3 kg (207 lb 12.8 oz) 08/27/2023 8:57 AM CDT Height 165.1 cm (5' 5 ) 01/12/2022 4:40 PM CDT Body Mass Index 34.58 01/12/2022 4:40 PM CDT Plan of Treatment Health Maintenance Due Date Last Done Comments Breast Cancer Screening-Mammogram 1965 Cervical Cancer Screening 1965 Colon Cancer Screening-Colonoscopy 1965 Depression Screening 1965 Hepatitis C Screening 1965 Hepatitis B Screening 1982 Regular Well Visit/Exam 18-64 1982 Zoster Vaccine (1 of 2) 2014 Covid-19 Vaccine ( season) 2024 04/19/2021, 08/20/2020, 07/30/2020 Influenza Vaccine (#1) 2024 8, 04/28/2014, 06/10/2013, Additional history exists DTaP/Tdap/Td Vaccine (2 - Td or Tdap) 07/07/2031 07/07/2021 Pneumococcal vaccine <65 Aged Out 05/11/2014 No longer eligible based on patient's age to complete this topic Insurance MEDICARE [facility] MED[facility] Address: [address] [address] [place] [address] MEDICARE [facility] MED[facility] Address: [address] [address] [place] [address] Care Teams Distributor Advertising Material Relationship Specialty Start Date End Date No, Physician PCP - General 01/05/22
--- OUTSIDE RECORDS SUMMARY | 2024-06-22 18:14 | XMS_ITS | Referral Summary ---
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 Morbid obesity 01/22/2015 Social History Tobacco Use Types Packs/Day Years Used Date Smoking Tobacco: Former Smokeless Tobacco: Former Quit: 2009 Tobacco Cessation:Counseling Given: Not Answered Comments:Quit in 2009 Personal Safety Answer Date Recorded Getting School Help Needed Not on file 06/22 Comments Unknown Sex and Gender Information Value Date Recorded Sex Assigned at Not on file 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
== END 2024-06-20 13:08 | disposition home or self-care (01) ==
PROVIDERS: Emergency Provider Nurse Practitioner Family; PCP Family Medicine
DX: J06.9 Acute upper respiratory infection, unspecified (principal); J02.9 Acute pharyngitis, unspecified; Z20.818 Contact with and (suspected) exposure to other bacterial communicable diseases; F17.290 Nicotine dependence, other tobacco product, uncomplicated; F41.9 Anxiety disorder, unspecified; E66.9 Obesity, unspecified; Z68.30 Body mass index [BMI] 30.0-30.9, adult
CPT/HCPCS: 87081; 87426; 87804; 87880; 99213; G0463

== ENCOUNTER 2024-11-24 08:29 | Emergency (ER) | payer MEDICARE, SELFPAY ==
--- NOTE | ~2024-11-24 | US_ITS ---
US venous doppler LE RT - 11/24/2024 9:31 CDT History: 59 years old Female with right lower extremity pain and swelling. Real-time sonographic images of the right lower extremity venous system were obtained. Color Doppler sonography and spectral waveform analysis were performed. No prior studies for comparison. The right sapheno-femoral junctions are patent. The right common femoral, superficial femoral, popl iteal and posterior tibial veins are compressible and without evidence of echogenic thrombus. Impression: No evidence of deep venous thrombosis Reviewed, dictated and finalized at location A. Impression: No evidence of deep venous thrombosis
--- NOTE | ~2024-11-24 | XR_ITS ---
EXAMINATION: XR knee RT 3V DATE: 11/24/2024 09:45 INDICATION: Right knee pain worse with movement TECHNIQUE: Anteroposterior, oblique and crosstable lateral views of the right knee were obtained COMPARISON: None. FINDINGS: Alignment is normal. No fracture. Mild joint space narrowing the patellofemoral compartment and smal l marginal osteophytes in all 3 compartments. No significant joint space narrowing the medial and lat eral compartments although joint space narrowing can be underestimated on nonweightbearing imaging. N o joint effusion/layering lipohemarthrosis. There are a few loose osteochondral bodies in the posteri or and popliteal recess of the knee as well as at the suprapatellar pouch. Soft tissues are unremarka ble. IMPRESSION: 1. Mild tricompartmental osteoarthritis at the right knee with several scattered loose osteochondral bodies. Reviewed, dictated and finalized at location A. IMPRESSION: 1. Mild tricompartmental osteoarthritis at the right knee with several scattere d loose osteochondral bodies.
[2024-11-24 08:39] VITALS: BP 126/83; PULSE 82; RESP 16; TEMP 36.6; O2SAT 96
--- NOTE | 2024-11-24 10:54 | ED.GENADULT ---
HPI - General Adult General Chief complaint: Extremity Problem,Nontraumatic Stated complaint: r/o R leg DVT Time Seen by Provider: 11/24/24 08:43 History of Present Illness HPI narrative: This is a 59-year-old female presenting with right calf pain. Patient lives lifting up her granddaughter who weighs about 20 lb 2 weeks ago. At that time she felt pull in hamstring. She developed sharp pain that was worse with movement. It is become more achy and spread down into her calf as well. She called her primary care physician who directed her to come to the ED for DVT rule out. Patient has no history of DVT/PE. No swelling of the leg. No chest pain difficulty breathing. Related Data Home Medications ?Medication ?Instructions ?Recorded ?Confirmed ?Last Taken ?Type multivitamin 1 tablet PO DAILY 01/14/22 04/13/24 Unknown History bupropion HCl 150 mg 24 hr tablet, 150 mg PO DAILY 01/20/23 04/13/24 Unknown History extended release (Wellbutrin XL) ascorbate calcium (vitamin C) 500 500 mg PO DAILY 04/13/24 04/13/24 Unknown History mg tablet Allergies Allergy/AdvReac Type Severity Reaction Status Date / Time codeine AdvReac Unknown Vomiting Verified 11/24/24 08:30 PMFSH Past Medical History Medical History Obesity Anxiety Allergies Family History Family History Mother Depression Lymphoma Father Cancer Diabetes mellitus Depression Heart disease MDS (myelodysplastic syndrome) Grandparent Diabetes mellitus Hypertension Depression Heart disease Cerebrovascular accident Colorectal cancer Skin cancer Sibling Depression Other Family history of arthritis Social History Social History Social History: Caffeine-daily Smoking status: Former smoker Tobacco type: e-cigarettes/vaping Alcohol intake: never Substance use: never Substance use type: does not use Do You Feel Safe in your Home?: Yes Lack of Transportation: No Lack of Food: Never True Current Housing: I Have Housing Concerned About Future Housing: No Difficulty Paying Gas/Electric Bills: No Difficulty Paying for Meds: No Currently Unemployed: No Education: Associate Degree Difficulty w/ Childcare or Family Care: No Living arrangements: with family Spiritual care concerns: No Exam Narrative: APPEARANCE: No apparent distress. Head: atraumatic. EYES: EOMI, NOSE: Atraumatic NECK: Trachea midline RESPIRATORY: No increased rate of breathing CARDIOVASCULAR: RRR, no peripheral edema, +2 pulses all extremities ABDOMINAL: Non-distended MUSCULOSKELETAl: Focal exam the right lower extremity revealed no overlying skin changes, all compartments are soft, some tenderness over the distal hamstring tendons. Foot is warm and well perfused. Plus two pulses in the DP and TP distribution. NEURO: Alert. Moving 4/4 extremities SKIN:: Warm, dry. Normal color PSYCHIATRIC: Normal affect Course Vital Signs Vital signs: Vital Signs Temperature 97.8 F 11/24/24 08:39 Pulse Rate 82 11/24/24 08:39 Respiratory Rate 16 11/24/24 08:39 Blood Pressure 126/83 11/24/24 08:39 Pulse Oximetry 96 11/24/24 08:39 Oxygen Delivery Room Air 11/24/24 08:39 Temperature 97.8 F 11/24/24 08:39 Pulse Rate 82 11/24/24 08:39 Respiratory Rate 16 11/24/24 08:39 Blood Pressure 126/83 11/24/24 08:39 Pulse Oximetry 96 11/24/24 08:39 Oxygen Delivery Room Air 11/24/24 08:39 Medical Decision Making MDM Narrative Medical decision making narrative: -Course: 5-year-old female presenting ED for right leg pain. DVT scan negative for DVT. X-ray showed arthritis. His history and physical most consistent with muscle strain. Patient will be discharged with NSAIDs and muscle relaxers. Primary care follow-up. -DDX includes but is not limited to: DVT, Vazquez cyst, muscle strain, septic joint Vital Signs Vital Signs: Vital Signs Temperature 97.8 F 11/24/24 08:39 Pulse Rate 82 11/24/24 08:39 Respiratory Rate 16 11/24/24 08:39 Blood Pressure 126/83 11/24/24 08:39 Pulse Oximetry 96 11/24/24 08:39 Oxygen Delivery Room Air 11/24/24 08:39 Temperature 97.8 F 11/24/24 08:39 Pulse Rate 82 11/24/24 08:39 Respiratory Rate 16 11/24/24 08:39 Blood Pressure 126/83 11/24/24 08:39 Pulse Oximetry 96 11/24/24 08:39 Oxygen Delivery Room Air 11/24/24 08:39 Discharge Plan Discharge Clinical Impression: Knee pain Patient Disposition: Left Against Medical Advice Condition: Stable Instructions: Leg Pain (ED) Additional Instructions: You were seen in the emergency department for leg pain. You do not have a DVT. Your x-ray shows arthritis. Please use Motrin Tylenol and Robaxin for pain. Please follow-up with your primary care physician for further management. If you develop severe pain, inability to walk or fevers please return to the ED for re-evaluation. Patient Language: [place] Islander Prescriptions: New acetaminophen 500 mg tablet 1,000 mg PO TID PRN (Reason: gina) 7 Days Qty: 42 0RF ibuprofen 800 mg tablet 800 mg PO TID PRN (Reason: pain) 7 Days Qty: 21 0RF methocarbamol 750 mg tablet 1,500 mg PO TID Qty: 42 0RF No Action sertraline 100 mg tablet 200 mg PO QHS Qty: 180 1RF multivitamin Tablet 1 tablet PO DAILY bupropion HCl [Wellbutrin XL] 150 mg tablet extended release 24 hr 150 mg PO DAILY ascorbate calcium (vitamin C) 500 mg tablet 500 mg PO DAILY (DME) Aerochamber MV Spacer See Rx Instructions .Route Qty: 1 0RF Rx Instructions: Use with inhaler celecoxib [Celebrex] 200 mg capsule 200 mg PO DAILY Qty: 90 1RF Rx Instructions: Take with food albuterol sulfate 90 mcg/actuation HFA aerosol inhaler See Rx Instructions .ROUTE .COMPLEX Qty: 8.5 2RF Dose Instruction: INHALE 2 PUFFS BY MOUTH EVERY 4 HOURS NEEDED FOR SHORTNESS OF BREATH OR WHEEZING Rx Instructions: INHALE 2 PUFFS BY MOUTH EVERY 4 HOURS NEEDED FOR SHORTNESS OF BREATH OR WHEEZING Follow-up/Referrals: Angie Roberts DO [Primary Care Provider] -
== END 2024-11-24 11:21 | disposition left against medical advice (07) ==
PROVIDERS: Emergency Provider Emergency Medicine; PCP Family Medicine
DX: M25.561 Pain in right knee (principal); F41.9 Anxiety disorder, unspecified; E66.9 Obesity, unspecified; Z87.891 Personal history of nicotine dependence; Z68.31 Body mass index [BMI] 31.0-31.9, adult
CPT/HCPCS: 73562; 93971; 99284

== ENCOUNTER 2025-01-16 10:40 | Outpatient (CLI) | payer MEDICARE, SELFPAY ==
--- NOTE | ~2025-01-16 | DEXA_ITS ---
Bone Density Report Name: JORGE BEVERLY Age: 59 Sex: Female Ethnicity: White Date of : 1965 Indication: postmenopausal; screening for osteoporosis; height loss; prior fracture; Referring Provider: MARCUS STEWART Study: Bone densitometry was performed. Exam Date: January 16, 2025 Accession number: [id number] Bone Density: Region BMD T-score Z-score Classification AP Spine(L1-L4) 1.142 0.9 2.3 Normal Femoral Neck (Left) 0.628 -2.0 -0.7 Osteopenia Total Hip (Left) 0.841 -0.8 0.2 Normal Femoral Neck (Right) 0.597 -2.3 -1.0 Osteopenia Total Hip (Right) 0.800 -1.2 -0.2 Osteopenia Total Hip Mean 0.821 -1.0 0.0 Normal World Health Organization criteria for BMD impression classify patients as: Normal (T-score at or above -1.0), Osteopenia (T-score between -1.0 and -2.5), or Osteoporosis (T-score at or below -2.5). 10-year Fracture Risk(1): Major Osteoporotic Fracture 17% Hip Fracture 2.6% Reported Risk Factors: [place] (), Neck BMD=0.597, BMI=34.1, previous fracture (1) FRAX(R) Version 3.08. Fracture probability calculated for an untreated patient. Fracture probability may be lower if the patient has received treatment. Clinical Information Provided by Patient: Has had a low trauma fracture Patient maximum height was 68 Menopause Age: 51 No regular weight bearing exercise Drinks caffeinated beverages Onset of menses at age 11 Number of children 0 Impression: The patient has low bone mass, based on the Right Femoral Neck T-score. The patient has an estimated ten-year risk of hip fracture of 2.6% and an estimated ten-year risk of major fracture of 17%, based on the WHO FRAX algorithm. The patient has risk factors, including: previous fracture. Discussion: BONE DENSITY IS LOW AT ONE OR MORE SKELETAL SITES. This patient's lowest T-score is low at one or more skeletal sites. It meets the World Health Organization's (WHO) criteria for ?low bone mass? (T-score between -1.0 and -2.5). The patient's 10-year risk of fracture as calculated by FRAX is less than the threshold where pharmacological therapy is recommended by the National Osteoporosis Foundation (NOF). However, all treatment decisions require clinical judgment and consideration of individual patient factors, including patient preferences, comorbidities, previous drug use, risk factors not captured in the FRAX model (e.g., frailty, falls, vitamin D deficiency, increased bone turnover, interval significant decline in bone density) and possible under or overestimation of fracture risk by FRAX. The patient should follow a healthful lifestyle (good nutrition with adequate calcium and vitamin D, and appropriate weight-bearing exercise). Follow-Up: Consider repeating this study in 2 to 3 years to reassess this patient's status, or sooner if there is some new clinical indication. Reported by: NAN on 01/16/2025 11:09:00 AM. Reviewed, dictated and finalized at location A.
== END 2025-01-16 10:41 | disposition home or self-care (01) ==
PROVIDERS: PCP Family Medicine; Visit Provider Family Medicine
DX: M85.88 Other specified disorders of bone density and structure, other site (principal); Z78.0 Asymptomatic menopausal state; Z13.820 Encounter for screening for osteoporosis
CPT/HCPCS: 77080

== ENCOUNTER 2025-01-26 13:55 | Outpatient (CLI) | payer MEDICARE, SELFPAY ==
--- NOTE | ~2025-01-26 | MM_ITS ---
EXAMINATION: MM screening [facility] w [facility] HISTORY: Screening TECHNIQUE: Craniocaudal and mediolateral oblique 3-D tomosynthesis images were obtained and synthetic 2-D images were generated. CAD analysis was submitted and interpreted. COMPARISON: No prior mammogram is available for comparison at this institution. BREAST PARENCHYMAL COMPOSITION: Not Dense: The breasts are almost entirely fatty. FINDINGS: There is no evidence of suspicious mass, calcification, or architectural distortion to suggest malignancy. IMPRESSION: 1. No mammographic evidence of malignancy. Recommend routine screening mammography in one year. BI-RADS Category 2: Benign finding(s) Reviewed, dictated and finalized at location Q. IMPRESSION: 1. No mammographic evidence of malignancy. Recommend routine screening mammogra phy in one year. BI-RADS Category 2: Benign finding(s)
== END 2025-01-26 13:56 | disposition home or self-care (01) ==
LOC: MICIMG 13:56
PROVIDERS: PCP Family Medicine; Visit Provider Nurse Practitioner
DX: Z12.31 Encounter for screening mammogram for malignant neoplasm of breast (principal)
CPT/HCPCS: 77063; 77067

== ENCOUNTER 2025-05-29 10:22 | Emergency (ER) | payer MEDICARE, SELFPAY ==
[2025-05-29 10:38] VITALS: BP 108/51; PULSE 82; RESP 18; TEMP 36.1; O2SAT 97
[2025-05-29 10:53] LABS: EDCOVIDSCREEN Negative (Negative); EDINFLUASCREEN Negative (Negative); EDINFLUBSCREEN Negative (Negative)
--- OUTSIDE RECORDS SUMMARY | 2025-05-29 10:53 | XMS_ITS | Clinical Summary ---
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 Gender Identity Female 01/07/2022 11:02 AM CDT Sexual Orientation Lesbian 01/07/2022 11 :02 AM CDT Last Filed Vital Signs Vital Sign Reading Time Taken Comments Blood Pressure 100/64 08/27/2023 8:57 AM CDT Pulse 71 08/27/2023 8:57 AM CDT Temperature 36.4 C (97.5 F) 08/27/2023 8:57 AM CDT Respiratory Rate 16 08/27/2023 8:57 AM CDT Oxygen Saturation 97% 08/27/2023 8:57 AM CDT Inhaled Oxygen Concentration - - Weight 94.3 kg (207 lb 12.8 oz) 08/27/2023 8:57 AM CDT Height 165.1 cm (5' 5) 01/12/2022 4:40 PM CDT Body Mass Index 34.58 01/12/2022 4:40 PM CDT Plan of Treatment Health Maintenance Due Date Last Done Comments Breast Cancer Screening-Mammogram 1964 Cervical Cancer Screening 1964 Colon Cancer Screening-Colonoscopy 1964 Depression Screening 1964 Hepatitis C Screening 1964 Hepatitis B Screening 1982 Regular Well Visit/Exam 18-64 1982 Zoster Vaccine (1 of 2) 2014 Covid-19 Vaccine ( season) 2025 04/19/2021, 08/20/2020, 07/30/2020 Influenza Vaccine (#1) 2025 8, 04/28/2014, 06/10/2013, Additional history exists DTaP/Tdap/Td Vaccine (2 - Td or Tdap) 07/07/2031 07/07/2021 Pneumococcal vaccine <65 Aged Out 05/11/2014 No longer eligible based on patient's age to complete this topic Insurance MEDICARE ADVANTAGE MEDICARE ADVANTAGE Care Teams Personal Banker Relationship Specialty Start Date End Date No, Physician PCP - General 01/05/22
--- NOTE | 2025-05-29 12:07 | ED.GENADULT ---
HPI - General Adult General Chief complaint: Upper Respiratory Infection Stated complaint: URI Source: patient Mode of arrival: ambulatory Limitations: no limitations History of Present Illness HPI narrative: Patient presents for evaluation of sick symptoms since 05/24/2025. She reports headache, sinus congestion, thick mucopurulent drainage the nares, cough, and shortness of breath. She denies any nausea, vomiting or diarrhea. She has been spending time with her grandkids who attend daycare. She does use an electric cigarette. She has been taking DayQuil and Mucinex for symptoms. She has had pneumonia in the past and this feels similar. Related Data Home Medications ?Medication ?Instructions ?Recorded ?Confirmed ?Last Taken ?Type multivitamin 1 tablet PO DAILY 01/14/22 11/30/24 Unknown History bupropion HCl 150 mg 24 hr tablet, 150 mg PO DAILY 01/20/23 11/30/24 Unknown History extended release (Wellbutrin XL) famotidine [Pepcid AC] PO 11/30/24 11/30/24 Unknown History fexofenadine [Jayne Allergy] PO 11/30/24 11/30/24 Unknown History lactobacillus combination no.9 4 4,000 mmu cells PO DAILY 11/30/24 11/30/24 Unknown History billion cell capsule (Adult 50 Plus Probiotic) methocarbamol 750 mg tablet 1,500 mg PO TID PRN 11/30/24 11/30/24 Unknown History Allergies Allergy/AdvReac Type Severity Reaction Status Date / Time codeine AdvReac Intermediate Vomiting Verified 05/29/25 10:42 Review of Systems Review of Systems: CONSTITUTIONAL: Denies fever, chills, or sweats. EYES: Denies visual changes, redness, or discharge. ENT: Reports sinus congestion and thick drainage. Denies sore throat. CARDIOVASCULAR: Denies chest pain, palpitations, or edema. RESPIRATORY: Reports cough and shortness of breath GASTROINTESTINAL: Denies abdominal pain, nausea, vomiting, or diarrhea. GENITOURINARY: Denies dysuria or hematuria. SKIN: Denies rash or itching. MUSCULOSKELETAL: Denies back pain, joint pain, or myalgia. NEUROLOGIC: Reports headache. Denies numbness, dizziness, or weakness. PSYCHIATRIC: Denies anxiety or depression. [facility] Past Medical History Medical History Obesity Anxiety Allergies Surgical History Surgical History No pertinent past surgical history Family History Family History Mother Depression Lymphoma Father Cancer Diabetes mellitus Depression Heart disease MDS (myelodysplastic syndrome) Grandparent Diabetes mellitus Hypertension Depression Heart disease Cerebrovascular accident Colorectal cancer Skin cancer Sibling Depression Other Family history of arthritis Social History Social History Social History: Caffeine-daily Smoking status: Former smoker Tobacco type: e-cigarettes/vaping Alcohol intake: never Substance use: never Substance use type: does not use Lack of Transportation: No Lack of Food: Never True Current Housing: I Have Housing Concerned About Future Housing: No Difficulty Paying Gas/Electric Bills: No Difficulty Paying for Meds: No Currently Unemployed: No Education: Associate Degree Difficulty w/ Childcare or Family Care: No Living arrangements: with family Spiritual care concerns: No Exam Narrative: GENERAL: Well-appearing, well-nourished, and in no acute distress. HEAD: Normocephalic, atraumatic. EYES: PERRLA and EOMI. ENT: Nares clear, no rhinorrhea or epistaxis. Mucous membranes moist. Oropharynx without tonsillar hypertrophy exudate or other lesions. Bilateral TMs pearly ibrahim nonbulging NECK: Supple. No adenopathy or masses. No carotid bruits or JVD CHEST: wheezing and rales noted bilaterally HEART: Regular rate and rhythm. No murmur heard. Normal peripheral pulses. ABDOMEN: Soft, nontender, nondistended, normal active bowel sounds. EXTREMITIES: Normal range of motion. No edema. SKIN: Warm, dry, no rash. NEURO: No focal deficits. Alert and oriented x3. PSYCH: Normal mood and affect. Course Course Emergency Course: this is a 60-year-old female who presented for evaluation of respiratory symptoms. COVID and influenza negative. I recommended chest x-ray. She declined. She does have risk factors for pneumonia and has had in the past. We mutually agreed to treat for pneumonia with azithromycin and Augmentin. Would prednisone and albuterol. Follow-up with primary provider. Go to the ER for worsening symptoms. Patient in agreement with plan of care. Level of Care: Express Care Visit Vital Signs Vital signs: Vital Signs Temperature 36.1 C L 05/29/25 10:38 Pulse Rate 82 05/29/25 10:38 Respiratory Rate 18 05/29/25 10:38 Blood Pressure 108/51 L 05/29/25 10:38 Pulse Oximetry 97 05/29/25 10:38 Oxygen Delivery Room Air 05/29/25 10:38 Temperature 36.1 C L 05/29/25 10:38 Pulse Rate 82 05/29/25 10:38 Respiratory Rate 18 05/29/25 10:38 Blood Pressure 108/51 L 05/29/25 10:38 Pulse Oximetry 97 05/29/25 10:38 Oxygen Delivery Room Air 05/29/25 10:38 MDM Differential Diagnosis Differential Diagnosis: Influenza verses COVID versus pneumonia versus other Lab Data Labs: Lab Results 05/29/25 Range/Units 10:52 POC Influenza A Ag Negative (Negative) POC Influenza B Ag Negative (Negative) POC SARS CoV-2 Ag Negative (Negative) Discharge Plan Discharge Clinical Impression: At risk for pneumonia Patient Disposition: Home Condition: Stable Instructions: Antibiotic Form, Bacterial Pneumonia (DC) Patient Language: Tamazight Prescriptions: New amoxicillin-pot clavulanate 875-125 mg tablet 1 tablet PO Q12H Qty: 20 0RF azithromycin 250 mg tablet See Rx Instructions .ROUTE .COMPLEX Qty: 6 0RF Rx Instructions: For 250 mg dose pack: take 500 mg today (day 1), then 250 mg for 4 days (days 2-5) prednisone 50 mg tablet 50 mg PO DAILY Qty: 5 0RF albuterol sulfate [Ventolin HFA] 90 mcg/actuation HFA aerosol inhaler 2 puff inhalation QID PRN (Reason: shortness of breath or wheezing) Qty: 8.5 0RF No Action sertraline 100 mg tablet 200 mg PO QHS Qty: 180 1RF methocarbamol 750 mg tablet 1,500 mg PO TID PRN Adult 50 Plus Probiotic 4 billion cell capsule 4,000 mmu cells PO DAILY Rx Instructions: administer with a meal fexofenadine [Jayne Allergy] PO famotidine [Pepcid AC] PO multivitamin Tablet 1 tablet PO DAILY bupropion HCl [Wellbutrin XL] 150 mg tablet extended release 24 hr 150 mg PO DAILY acetaminophen 500 mg tablet 1,000 mg PO TID PRN (Reason: gina) 7 Days Qty: 42 0RF ibuprofen 800 mg tablet 800 mg PO TID PRN (Reason: pain) 7 Days Qty: 21 0RF (DME) Aerochamber MV Spacer See Rx Instructions .Route Qty: 1 0RF Rx Instructions: Use with inhaler albuterol sulfate 90 mcg/actuation HFA aerosol inhaler See Rx Instructions .ROUTE .COMPLEX Qty: 8.5 2RF Dose Instruction: INHALE 2 PUFFS BY MOUTH EVERY 4 HOURS NEEDED FOR SHORTNESS OF BREATH OR WHEEZING Rx Instructions: INHALE 2 PUFFS BY MOUTH EVERY 4 HOURS NEEDED FOR SHORTNESS OF BREATH OR WHEEZING celecoxib [Celebrex] 200 mg capsule 200 mg PO .EOD Qty: 45 1RF Rx Instructions: Take with food Follow-up/Referrals: Angie Roberts DO [Primary Care Provider, Family Practice] Time of Disposition: 12:07
== END 2025-05-29 12:10 | disposition home or self-care (01) ==
PROVIDERS: Emergency Provider Nurse Practitioner; PCP Family Medicine
DX: R51.9 Headache, unspecified (principal); R05.1 Acute cough; R06.02 Shortness of breath; Z20.822 Contact with and (suspected) exposure to COVID-19; E66.9 Obesity, unspecified; F41.9 Anxiety disorder, unspecified
CPT/HCPCS: 87426; 87804; 99213; G0463